=== PATIENT | male | born 1965 | race Caucasian/White ===

== ENCOUNTER 2020-06-24 09:01 | Emergency (ER) | payer OTHER ==
[~2020-06-24] VITALS: Ht 175.3 cm; Wt 83.9 kg
[~2020-06-24 09:01] MED LIST: HYDACE5 PO; NAPR500 PO; PRED20 PO
[2020-06-24] MEDS ORDERED: Toradol10 MG PO (11:42)
== END 2020-06-24 12:46 | disposition home or self-care (01) ==
LOC: ER 09:01
DX: M54.42 Lumbago with sciatica, left side (principal); F17.210 Nicotine dependence, cigarettes, uncomplicated
CPT/HCPCS: 72192; 96374; 96375; 99284-25; J1100; J3010

== ENCOUNTER → 2020-11-12 | Outpatient (CLI) | payer OTHER ==
[~2020-11-12] MED LIST changes: +Toradol10 MG PO
[2020-11-14 15:08] LABS: COTININE Positive ng/mL (Cutoff=300)
== END ==
LOC: LAB SHORT 11:27 → LAB 11:27 → EDSTATUS 11:46
PROVIDERS: Family Medicine
DX: F17.200 Nicotine dependence, unspecified, uncomplicated (principal)

== ENCOUNTER → 2020-12-14 | Outpatient (CLI) | payer OTHER ==
[2020-12-20 16:10] LABS: ANABASINE <1 ng/mL (.); COTININE 14 ng/mL (.); NICOTINE <10 ng/mL (.)
== END | disposition home or self-care (01) ==
LOC: LAB SHORT 10:33 → LAB 10:33
PROVIDERS: Family Medicine
DX: F17.200 Nicotine dependence, unspecified, uncomplicated (principal)
CPT/HCPCS: G0480